=== PATIENT | male | born 1955 | race African-American/Black ===

== ENCOUNTER 2016-08-02 18:58 | Observation (INO) | payer BC, OTHER ==
--- NOTE | ~2016-08-02 | CR72 ---
[facility] A Service of [facility] & [facility] RADIOLOGY TEXT RESULTS PATIENT: MADISON FOFANA [facility] 473-01 : [birth year] UNIT #: [id number] AGE: [address]: Deirdre Ramirez MD SEX: M ORDER DR: [id number] [facility] [address] [place], [place] [address] [id number] MR#: [id number] #: [id number] NAME: MADISON FOFANA : 1955 SEX: M STUDY DATE/TIME: 08/02/2016 18:55 UNIT[facility] ROOM: [facility] STUDY DESCRIPTION: CR Chest Single View Portable Attending Physician: Candelaria Vásquez M.D. Ordering Physician: Joe Ngo M.D. Primary Care Physician: Primary Care Physician No MEDICAL IMAGING REPORT This report is preliminary unless electronic signature is present EXAM Portable chest, 08/02 COMPARISON 07/17/2015 HISTORY Dizziness, irregular heartbeat, low blood pressure, shortness of breath for 1 week. FINDINGS An AP view is obtained. Cardiovascular configuration remains normal and the lungs are clear. CONCLUSION Negative portable chest. Dictated by... Rodrick Hathaway M.D. THIS IS AN ELECTRONICALLY VERIFIED REPORT Rodrick Hathaway M.D. at 08/06/2016 5:10 PM Donnell TD: 08/03/2016 08:20 JOB #: [id number] MEDICAL IMAGING REPORT Page 1 of 1 COPY
--- NOTE | ~2016-08-02 | DS ---
Unit #: [id number] #: [id number] Patient: MADISON FOFANA [id number] [address] [address] [id number] MR#: [id number] NAME: MADISON FOFANA ROOM: 473 Age: 61 Sex: M Admission Date: 08/02/2016 : 1955 Discharge Date: Attending Physician: Deirdre Ramirez M.D. Primary Care Physician: No Primary Care Physician DISCHARGE SUMMARY SHORT STAY SUMMARY DIAGNOSES ON ADMISSION 1. Acute kidney injury. 2. Hypotension. 3. Hypoglycemia. DIAGNOSES ON DISCHARGE 1. Acute kidney injury, improved. 2. Hypotension, resolved. 3. Hypoglycemia, resolved. 4. 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 5. History of hypertension. 6. Hyperlipidemia. 7. Gastroesophageal reflux disease. Patient remained stable. His lab work today revealed creatinine of 1.6. His white blood cell is 9.1 and hemoglobin is 13.4. The patient is very anxious to go home. Therefore, we will discharge him home. He states that he has appointment with his family care physician on Saturday. RECOMMENDATIONS ON DISCHARGE Condition is stable. Activity is as tolerated. MEDICATIONS 1. Vitamin D 50,000 units q. weekly. 2. Protonix 40 mg daily. 3. Lisinopril 10 mg p.o. daily. 4. Lipitor 40 mg p.o. daily. 5. Lantus 45 units subcu a.m. Patient was advised not to take metformin and Invokana. FOLLOWUP Patient advised to follow up with primary care physician on Saturday, 08/06, as scheduled. He is advised to have Accu-Cheks a.c. and q. h.s. and call primary care physician less than 80 or greater than 350. He is also advised to have BMP with PCP on 08/06 for follow up on his creatinine. Please make note - his creatinine was 1.6 today. It was 2.5 on admission. I believe the patient should not use Invokana and metformin. The patient is already on Lantus. Unit #: [id number] #: [id number] Patient: MADISON FOFANA Dictated by... John Burnett/lisa TD: 08/03/2016 12:39 JOB #: [id number] DISCHARGE SUMMARY X Deirdre Ramirez MD DISCHARGE SUMMARY
--- NOTE | ~2016-08-02 | HP ---
Unit #: [id number] #: [id number] Patient: MADISON FOFANA [id number] [address] [place], [place] [address] [id number] I MR#: [id number] NAME: MADISON FOFANA ROOM: 65772 Age: 61 Sex: M Admission Date: 08/02/2016 : 1955 Attending Physician: Candelaria Vásquez M.D. Primary Care Physician: No Primary Care Physician HISTORY AND PHYSICAL CHIEF COMPLAINT Acute kidney injury, hypotension, hypoglycemia. HISTORY This pleasant 61-year-old male with AODM, hypertension, GERD, is admitted for acute kidney injury. The patient takes Lantus and metformin for his type 2 diabetes. He was given some prescriptions of Invokana, ran out, and then was prescribed Invokana one week ago. Over the past week has not been feeling well, notes some weight loss, along with poor p.o. intake. Today he felt lightheaded at work with some palpitations. His blood pressure was checked and his systolic blood pressure was about 80. He went to eat, and then became lightheaded again while working. He was sent to this facility with an initial Accu-Chek of about 50. Blood pressure 102/57. Labs are notable for dehydration with acute kidney injury. The patient's creatinine currently is 2.5, and was 1 in September, 1.7 in January. In the ER he was fed, and currently is receiving a liter bolus of normal saline. PAST MEDICAL HISTORY 1. AODM x15 years with peripheral neuropathy and retinopathy requiring laser surgery. 2. Hypertension. 3. Hyperlipidemia. 4. GERD. 5. Eye surgery requiring laser surgery. 6. C-spine surgery. ALLERGIES No known drug allergies. HOME MEDICATIONS 1. Vitamin D 5000 units weekly. 2. Protonix 40 mg daily. 3. Metformin 1000 mg b.i.d. 4. Lisinopril 10 mg daily. 5. Lipitor 40 mg daily. 6. Invokana 100 mg daily. 7. Lantus 45 units q.a.m. 8. I believe Neurontin. FAMILY HISTORY Diabetes mellitus. Unit #: [id number] #: [id number] Patient: MADISON FOFANA SOCIAL HISTORY The patient lives with his . He smokes one-half pack per day of tobacco, drinks occasional beer. REVIEW OF SYSTEMS Review of systems is notable for lightheadedness, hypoglycemia, weight loss over the past week, diabetes, hypertension, neuropathy, retinopathy, hyperlipidemia, GERD and abovementioned surgeries. All other systems reviewed and are negative. PHYSICAL EXAMINATION GENERAL: Pleasant, thin 61-year-old male currently in no acute distress. VITAL SIGNS: Temperature 98.8. Pulse 86. Respirations 16. Initial blood pressure 102/57. O2 saturation 99% on room air. HEENT EXAMINATION: Eyes PERRLA, extraocular muscles are intact. Pharynx is benign. NECK: Supple, without adenopathy or thyromegaly. CHEST: Clear. CARDIAC: Normal S1 and S2, without S3, S4 or murmur. ABDOMEN: Bowel sounds are present. No hepatosplenomegaly, tenderness or masses. EXTREMITIES: Without edema. Pedal pulses are present. NEUROLOGIC EXAM: Patient is awake, alert, oriented. Cranial nerves are intact. Equal strength throughout. DIAGNOSTIC STUDIES LABORATORY: On admission labs hematocrit is 42.7, white blood count is 11.2, normal platelet count. SMA-12: Glucose 129, this was after patient was fed after an Accu-Chek was 51 in triage, BUN 56, creatinine 2.5 up from a BUN of 25, creatinine of 1 in September and a BUN of 32, creatinine of 1.7 in January, alkaline phosphatase 108. Cardiac markers are negative. Urinalysis is pending. IMAGING: Chest x-ray no acute disease. CARDIOVASCULAR: EKG normal sinus rhythm, rate 88, normal appearing, left axis deviation. ASSESSMENT 1. Acute kidney injury, likely related to dehydration after starting Invokana. Patient may have some underlying chronic kidney disease as well. 2. Hypertension with hypotension at work. 3. Adult-onset diabetes mellitus with hypoglycemia. 4. Gastroesophageal reflux disease. 5. Hyperlipidemia. PLANS 1. IV fluids. 2. Discontinue Invokana. 3. Will hold metformin and lisinopril for now and repeat labs in the morning. 4. Repeat labs in the morning. 5. Check post-void bladder scan, a urinalysis is pending. 6. Obtain TSH and free T4. Unit #: [id number] #: [id number] Patient: MADISON FOFANA Dictated by Candelaria Vásquez M.D. AML/cf TD: 08/02/2016 21:26 JOB #: [id number] HISTORY AND PHYSICAL X Candelaria Vásquez MD HISTORY AND PHYSICAL
--- NOTE | ~2016-08-02 | EKG ---
PATIENT: MADISON FOFANA UNIT #: [id number] Ventricular Rate: 88 BPM Atrial Rate: 88 BPM P-R Interval: 152 ms QRS Duration: 106 ms Q-T Interval: 366 ms QTC Calculation(Bezet): 442 ms P [place]: 86 degrees Calculated R [place]: -42 degrees Calculated T [place]: 88 degrees Diagnosis Line: Normal sinus rhythm Diagnosis Line: Left axis deviation Diagnosis Line: Abnormal ECG Diagnosis Line: When compared with ECG of 23-JAN-2016 20:39, Diagnosis Line: Criteria for Septal infarct are no longer Present Diagnosis Line: Confirmed by FRANCISCA GAINES MD ([id number]) on 08/03/2016 Diagnosis Line: 12:07:52 PM INTERPRETING MD: EDER LUIS
[2016-08-02 19:03] LABS: BASOPHIL% 0.3 % (0-2.5); EOSINOPHIL# 0.2 X10e3 (0-0.7); HEMATOCRIT 42.7 % (38.0-50.0); HEMOGLOBIN 13.8 gm/dL (13.0-16.0); LYMPHOCYTE# 2.4 X10e3 (1.0-3.5); LYMPHOCYTE% 21.1 % (17.0-45.0); MEAN CELL VOLUME 90.3 FL (83-96); MEAN CORPUSCULAR HEMOGLOBIN 29.3 PG (28-34); MEAN CORPUSCULAR HGB CONC 32.4 g/dL (30-36); MEAN PLATELET VOLUME 8.7 FL (6.5-11.5); MONOCYTE# 0.8 X10e3 (0-1.0); MONOCYTE% 7.5 % (3.0-12.0); NEUTROPHIL# 7.7 X10e3 (1.5-7.1); NEUTROPHIL% 69.1 % (40-75); PLATELET COUNT 216 X10e3 (140-420); RED BLOOD COUNT 4.73 X10e (3.90-5.60); RED CELL DISTRIBUTION WIDTH 14.4 % (11.0-15.5); WHITE BLOOD COUNT 11.2 X10e3 (4.0-10.5)
[2016-08-02 19:04] LABS: DIFF IND NO
[2016-08-02 19:30] LABS: ALBUMIN SERUM 4.4 g/dL (3.5-5.0); BILIRUBIN, DIRECT 0.1 mg/dL (0.0-0.2); BILIRUBIN,INDIRECT 0.4 mg/dL (0.0-0.9); BILIRUBIN,TOTAL 0.5 mg/dL (0.2-2.0); BUN/CREATININE RATIO 22.4; CALCIUM SERUM 8.9 mg/dL (8.4-10.2); CREATININE SERUM 2.5 mg/dL (0.6-1.4); GLOM FILT RATE Estimated 34.2 mL/min (>60); POTASSIUM 4.2 mmol/L (3.5-5.1); PROTEIN TOTAL SERUM 7.5 g/dL (6.0-8.3)
[2016-08-02 19:47] LABS: POC - CKMB 3.1 ng/mL (0.0-7.9); POC - TROPONIN <0.05 ng/mL (<=0.05)
[2016-08-02 20:49] LABS: URINE SOURCE CLEAN CATCH
[2016-08-02 20:56] LABS: URINE APPEARANCE CLEAR; URINE BILIRUBIN NEG (NEG); URINE BLOOD NEG (NEG); URINE COLOR YELLOW; URINE GLUCOSE >1000 MG/DL (NEG); URINE KETONE TRACE (NEG); URINE LEUKOCYTE ESTERASE NEG (NEG); URINE NITRATE NEG (NEG); URINE PROTEIN NEG (NEG); URINE SPECIFIC GRAVITY 1.023 (1.003-1.035)
[2016-08-02 21:06] LABS: CULTURE INDICATED? NO
[2016-08-03 05:31] LABS: BASOPHIL% 0.5 % (0-2.5); EOSINOPHIL# 0.3 X10e3 (0-0.7); EOSINOPHIL% 3.5 % (0.0-7.0); HEMATOCRIT 40.8 % (38.0-50.0); HEMOGLOBIN 13.4 gm/dL (13.0-16.0); LYMPHOCYTE# 2.6 X10e3 (1.0-3.5); LYMPHOCYTE% 28.8 % (17.0-45.0); MEAN CELL VOLUME 90.6 FL (83-96); MEAN CORPUSCULAR HEMOGLOBIN 29.6 PG (28-34); MEAN CORPUSCULAR HGB CONC 32.7 g/dL (30-36); MEAN PLATELET VOLUME 8.4 FL (6.5-11.5); MONOCYTE# 0.9 X10e3 (0-1.0); MONOCYTE% 9.6 % (3.0-12.0); NEUTROPHIL# 5.2 X10e3 (1.5-7.1); NEUTROPHIL% 57.6 % (40-75); PLATELET COUNT 200 X10e3 (140-420); RED BLOOD COUNT 4.51 X10e (3.90-5.60); RED CELL DISTRIBUTION WIDTH 14.4 % (11.0-15.5); WHITE BLOOD COUNT 9.1 X10e3 (4.0-10.5)
[2016-08-03 05:34] LABS: DIFF IND NO
[2016-08-03 06:13] LABS: THYROID STIMULATING HORMONE 0.79 uIU/ml (0.34-5.60)
[2016-08-03 06:18] LABS: BUN/CREATININE RATIO 26.25; CALCIUM SERUM 8.3 mg/dL (8.4-10.2); CREATININE SERUM 1.6 mg/dL (0.6-1.4); GLOM FILT RATE Estimated 57.2 mL/min (>60); POTASSIUM 3.9 mmol/L (3.5-5.1)
[2016-08-03 06:20] LABS: FREE THYROXIN (T4) 0.78 ng/dL (0.58-1.64)
[2016-08-03] MEDS ORDERED: LANTUS100 U/ML SUBQ (14:01)
[2016-08-03] MEDS ORDERED: INVOKANA100 MG PO (14:01)
[2016-08-03] MEDS ORDERED: PROTONIX PO (14:02)
[2016-08-03] MEDS ORDERED: MOBIC15 MG PO (14:02)
[2016-08-03] MEDS ORDERED: METFORMIN HCL1000 M1 PO (14:02)
[2016-08-03] MEDS ORDERED: LISINOPRIL10 MG PO (14:03)
[2016-08-03] MEDS ORDERED: LIPITOR40 MG PO (14:03)
[2016-08-03] MEDS ORDERED: NEURONTIN PO (14:04)
[2016-08-03] MEDS ORDERED: ACETAMINOPHEN PO (14:07)
== END 2016-08-03 14:56 | disposition home or self-care (01) ==
LOC: CED 18:58 → CEDOF 21:00 → C4C 21:51
PROVIDERS: Emergency Medicine; Internal Medicine
DX: N17.9 Acute kidney failure, unspecified (principal); I95.9 Hypotension, unspecified; E11.42 Type 2 diabetes mellitus with diabetic polyneuropathy; E11.319 Type 2 diabetes mellitus with unspecified diabetic retinopathy without macular edema; E11.649 Type 2 diabetes mellitus with hypoglycemia without coma; Z79.4 Long term (current) use of insulin; Z79.84 Long term (current) use of oral hypoglycemic drugs; E78.5 Hyperlipidemia, unspecified; K21.9 Gastro-esophageal reflux disease without esophagitis; Z86.79 Personal history of other diseases of the circulatory system
CPT/HCPCS: 36415; 71010; 80048; 80076; 81003; 82553; 82947; 84439; 84443; 84484; 85025; 93005; 96360; 99285; G0378

== ENCOUNTER 2016-11-11 08:18 | Emergency (ER) | payer BC, OTHER ==
--- NOTE | ~2016-11-11 | CR181 ---
[facility] A Service of [facility] & [facility] RADIOLOGY TEXT RESULTS PATIENT: MADISON FOFANA LOCATION: [facility] : 59 UNIT #: [id number] AGE: [address]: Facundo Mendiola MD SEX: M ORDER DR: [id number] [facility] [address] [place], [place] [address] [id number] MR#: [id number] Acc #: [id number] NAME: MADISON FOFANA : 1955 SEX: M STUDY DATE/TIME: 11/11/2016 9:28 UNIT: [facility] ROOM: STUDY DESCRIPTION: CR Lumbar Spine 2 or 3 Views Attending Physician: Facundo Mendiola M.D. Ordering Physician: Facundo Mendiola M.D. Primary Care Physician: Primary Care Physician No MEDICAL IMAGING REPORT This report is preliminary unless electronic signature is present EXAM Lumbar spine 3 views, 11/11/2016 HISTORY Low back pain beginning this morning. Injured back lifting grandson. FINDINGS Three views of the lumbar spine demonstrate no fracture. The posterior vertebral body line is intact and there is no anterolisthesis or retrolisthesis. The disc spaces are normally maintained. Anterior osteophytes are seen from L3-L5. IMPRESSION Mild degenerative change in the lumbar spine. No acute abnormality. Dictated by... Milo Costa M.D. THIS IS AN ELECTRONICALLY VERIFIED REPORT Milo Costa M.D. at 11/12/2016 8:06 AM VICENTE/darcie TD: 11/11/2016 10:22 JOB #: [id number] MEDICAL IMAGING REPORT Page 1 of 1 COPY
[~2016-11-11 08:18] MED LIST: ACETAMINOPHEN PO; INVOKANA100 MG PO; LANTUS100 U/ML SUBQ; LIPITOR40 MG PO; LISINOPRIL10 MG PO; METFORMIN HCL1000 M1 PO; MOBIC15 MG PO; NEURONTIN PO; PROTONIX PO
== END 2016-11-11 10:15 | disposition home or self-care (01) ==
LOC: CED 08:18
DX: M54.5 Low back pain (principal); E11.9 Type 2 diabetes mellitus without complications; Z79.899 Other long term (current) drug therapy; X58.XXXA Exposure to other specified factors, initial encounter
CPT/HCPCS: 72100; 96372; 99283; J1885